=== PATIENT | female | born 1955 | race Caucasian/White ===

== ENCOUNTER → 2018-10-28 | Emergency (ER) | payer OTHER ==
[~2018-10-28] VITALS: Ht 157.5 cm; Wt 72.6 kg
[~2018-10-28] MED LIST: AMLOD-VALSA-HC1 EAC1 PO; ANTIDEPRESSANT PO; LIPITOR 20 MG T20 M1 PO; MOBIC15 MG PO
[2018-10-28 20:13] VITALS: BP 130/85
== END ==
LOC: ER 20:09
DX: S01.01XA Laceration without foreign body of scalp, initial encounter (principal); F10.129 Alcohol abuse with intoxication, unspecified; I10 Essential (primary) hypertension; F32.9 Major depressive disorder, single episode, unspecified; M19.90 Unspecified osteoarthritis, unspecified site; W18.39XA Other fall on same level, initial encounter; Y92.002 Bathroom of unspecified non-institutional (private) residence as the place of occurrence of the external cause; Y93.89 Activity, other specified; Y99.8 Other external cause status